=== PATIENT | female | born 1960 | race Caucasian/White ===

== ENCOUNTER 2023-07-08 07:31 | Day surgery (SDC) | payer BC, OTHER ==
[~2023-07-08] VITALS: Ht 177.8 cm; Wt 80.0 kg
[~2023-07-08 07:31] MED LIST: BSS IRRIG/VANCO(10MG)/TOBRA(5MG)/EPINEPH(1:1000-0.5CC)500ML BAG-ORONLY IR ONE; BUPR300T92 PO; CALC500T68 PO; CEFUROXIME 1MG/0.1ML INTRACAMERAL INJ As Ordered ONE; D3 H10002 PO; LIDOCAINE 1% SDV 5ML VIAL As Ordered ONE; LIDOCAINE 3.5 % 1ML OPHTH TOPICAL GEL OU ONE; MAGN250T7 PO; OFLOXACIN 0.3 % (OCUFLOX) OPTH SOL 5ML OD ONE; PHENYLEPHRINE 10% OPHTH SOL 5ML OD PRN; THERTAB52 PO; TRIA37.577 PO
[2023-07-08] MEDS: TROPICAMIDE 1% OPHTH SOLN 15ML OD SCH ×2 (10:01→10:12)
[2023-07-08] MEDS: PHENYLEPHRINE 2.5% OPHTH SOL 2ML OD SCH ×2 (10:01→10:12)
[2023-07-08] MEDS: CYCLOPENTOLATE 1% OPHTH SOLN 2ML BTL OD SCH ×2 (10:01→10:12)
[2023-07-08] MEDS ORDERED: MIDAZOLAM INJ 2MG/2ML VIAL IV PRN (10:15)
[2023-07-08] MEDS ORDERED: MIDAZOLAM INJ 2MG/2ML VIAL As Ordered ONE (10:32)
[2023-07-08] MEDS ORDERED: fentaNYL 100 MCG/2 ML INJECTION As Ordered ONE (10:33)
[2023-07-08 11:03] VITALS: BP 110/64; TEMP 97.3; O2SAT 98
== END 2023-07-08 15:00 | disposition home or self-care (01) ==
LOC: M SDC 07:31
PROVIDERS: ATTEND Ophthalmology
DX: H26.9 Unspecified cataract (principal); I10 Essential (primary) hypertension; E78.00 Pure hypercholesterolemia, unspecified; M79.7 Fibromyalgia; F41.9 Anxiety disorder, unspecified; Z85.72 Personal history of non-Hodgkin lymphomas; Z79.899 Other long term (current) drug therapy
CPT/HCPCS: 66984; 92015; 93005; J0697; J2250; J3010; V2788

== ENCOUNTER 2023-10-21 08:31 | Day surgery (SDC) | payer BC, OTHER ==
[~2023-10-21] VITALS: Ht 177.8 cm; Wt 82.6 kg
[~2023-10-21 08:31] MED LIST changes: -BSS IRRIG/VANCO(10MG)/TOBRA(5MG)/EPINEPH(1:1000-0.5CC)500ML BAG-ORONLY IR ONE; -CEFUROXIME 1MG/0.1ML INTRACAMERAL INJ As Ordered ONE; -LIDOCAINE 1% SDV 5ML VIAL As Ordered ONE; -LIDOCAINE 3.5 % 1ML OPHTH TOPICAL GEL OU ONE; +MIDAZOLAM 5MG/ML 1ML VIAL As Ordered ONE; -OFLOXACIN 0.3 % (OCUFLOX) OPTH SOL 5ML OD ONE; -PHENYLEPHRINE 10% OPHTH SOL 5ML OD PRN
[2023-10-21] MEDS: LIDOCAINE 3.5 % 1ML OPHTH TOPICAL GEL OU ONE (08:56)
[2023-10-21] MEDS: OFLOXACIN 0.3 % (OCUFLOX) OPTH SOL 5ML OS ONE (08:56)
[2023-10-21] MEDS: PHENYLEPHRINE 2.5% OPHTH SOL 2ML OS SCH (08:57)
[2023-10-21] MEDS: TROPICAMIDE 1% OPHTH SOLN 15ML OS SCH (08:57)
[2023-10-21] MEDS: CYCLOPENTOLATE 1% OPHTH SOLN 2ML BTL OS SCH (08:57)
[2023-10-21] MEDS: PHENYLEPHRINE 10% OPHTH SOL 5ML OS PRN (08:57)
[2023-10-21] MEDS: CEFUROXIME 1MG/0.1ML INTRACAMERAL INJ As Ordered ONE (10:08)
[2023-10-21] MEDS: BSS IRRIG/VANCO(10MG)/TOBRA(5MG)/EPINEPH(1:1000-0.5CC)500ML BAG-ORONLY As Ordered ONE (10:08)
[2023-10-21] MEDS: LIDOCAINE 1% SDV 5ML VIAL As Ordered ONE (10:08)
[2023-10-21 10:21] VITALS: BP 127/70; TEMP 97.8; O2SAT 96
== END 2023-10-21 13:35 | disposition home or self-care (01) ==
LOC: M SDC 08:31
PROVIDERS: ATTEND Ophthalmology
DX: H25.12 Age-related nuclear cataract, left eye (principal); I10 Essential (primary) hypertension; M79.7 Fibromyalgia; F41.9 Anxiety disorder, unspecified; Z85.71 Personal history of Hodgkin lymphoma; Z92.21 Personal history of antineoplastic chemotherapy; Z79.899 Other long term (current) drug therapy
CPT/HCPCS: 66984; 92015; J0697; J2250; V2788